=== PATIENT | male | born 1975 | race Two or more races ===

== ENCOUNTER 2020-09-18 06:05 | Emergency (ER) | payer OTHER ==
[2020-09-18] MEDS ORDERED: HYDROmorphone 1 MG/ML 1 ML SYRINGE IM STA (06:28)
[2020-09-18] MEDS ORDERED: ORPHENADRINE 30 MG/ML 2 ML VIAL IM STA (06:28)
--- NOTE | 2020-09-18 06:36 | ED ---
Back Pain HPI - General Chief Complaint: Back Pain/Injury Stated Complaint: sciatica pain Time Seen by Provider: 09/18/20 06:21 Source: patient, family, RN notes reviewed Limitations: no limitations - History of Present Illness Initial Comments: This a 45-year-old male presents emergency Department with chief complaint of low back pain. Patient states that this started a few days ago with no injury. He states that he had a lobectomy and felt instant pain. He states it's hard to walk secondary to pain he has no weakness of his lower extremities denies any bowel incontinence or bladder retention. Denies any saddle anesthesias. He has no lower extremity paresthesias. He states are mild pain is in his left thigh patient does radiate pass his left knee. He states sitting with his legs dangling improves his symptoms he states almost worse when he lays down or twists. Patient denies any dysuria no fevers or chills no abdominal complaints. - Related Data Previous Rx's Medication Instructions Recorded Cyclobenzaprine [Flexeril] 10 mg PO TID PRN #15 tab 09/18/20 HYDROcodone/APAP 7.5-325MG [Mchenry 1 tab PO Q6HR PRN 3 Days #12 tab 09/18/20 7.5-325] Ibuprofen [Motrin] 600 mg PO Q8HR PRN #20 tab 09/18/20 predniSONE 50 mg PO DAILY #5 tab 09/18/20 Allergies Allergy/AdvReac Type Severity Reaction Status Date / Time No Known Allergies Allergy Verified 09/18/20 06:14 Review of Systems ROS Statement: Those systems with pertinent positive or pertinent negative responses have been documented in the HPI. ROS Other: All systems not noted in ROS Statement are negative. Past Medical History Past Medical History: GERD/Reflux History of Any Multi-Drug Resistant Organisms: None Reported Past Surgical History: No Surgical Hx Reported Past Psychological History: No Psychological Hx Reported Smoking Status: Never smoker Past Alcohol Use History: Daily, Occasional Past Drug Use History: None Reported General Exam Limitations: no limitations General appearance: alert, in no apparent distress Head exam: Present: atraumatic, normocephalic, normal inspection Eye exam: Present: normal appearance, PERRL, EOMI. Absent: scleral icterus, conjunctival injection, periorbital swelling ENT exam: Present: normal exam, normal oropharynx, mucous membranes moist Neck exam: Present: normal inspection, full ROM. Absent: tenderness, meningismus, lymphadenopathy Respiratory exam: Present: normal lung sounds bilaterally. Absent: respiratory distress, wheezes, rales, rhonchi, stridor Cardiovascular Exam: Present: regular rate, normal rhythm, normal heart sounds. Absent: systolic murmur, diastolic murmur, rubs, gallop, clicks GI/Abdominal exam: Present: soft, normal bowel sounds. Absent: distended, tenderness, guarding, rebound, rigid Extremities exam: Present: other (Extremity pulses equal bilaterally, no calf tenderness no swelling lower extremities equal color equal warmth) Back exam: Present: full ROM, tenderness (Left SI, left lower lumbar), paraspinal tenderness. Absent: vertebral tenderness Neurological exam: Present: alert, oriented X3, CN II-XII intact, reflexes normal. Absent: motor sensory deficit Psychiatric exam: Present: normal affect, normal mood Skin exam: Present: warm, dry, intact, normal color. Absent: rash Course Vital Signs 09/18/20 06:09 Temperature 97.8 F Pulse Rate 90 Respiratory 20 Rate Blood Pressure 144/97 O2 Sat by Pulse 98 Oximetry Medical Decision Making - Medical Decision Making This a 45-year-old male present emergency from for low back pain. X-ray shows degenerative changes greatest at the SI joint patient does have some levoscoliosis and osteopenia. Patient will be discharged with prednisone, pain control muscle relaxer. Patient follow-up with on-call and discussed. Disposition Clinical Impression: Lumbar radiculopathy, acute Disposition: HOME SELF-CARE Condition: Stable Instructions (If sedation given, give patient instructions): Acute Low Back Pain (ED), Lumbar Radiculopathy (ED) Additional Instructions: Please return to the Emergency Department if symptoms worsen or any other concerns. Prescriptions: Cyclobenzaprine [Flexeril] 10 mg PO TID PRN #15 tab PRN Reason: Muscle Spasm Ibuprofen [Motrin] 600 mg PO Q8HR PRN #20 tab PRN Reason: Pain HYDROcodone/APAP 7.5-325MG [Mchenry 7.5-325] 1 tab PO Q6HR PRN 3 Days #12 tab PRN Reason: pain predniSONE 50 mg PO DAILY #5 tab Is patient prescribed a controlled substance at d/c from ED?: Yes When asked, does pt state using other controlled substances?: No If prescribed controlled substance>3 days was MAPS reviewed?: Prescribed <3 Days If opioid is for acute pain is fill amount 7 days or less?: Yes If Rx opioid, was Start Talking consent form obtained?: Yes Referrals: Maria C Reeves MD [Primary Care Provider] - 1-2 days Wolfgang Max DO [Doctor of Osteopathic Medicine] - 1-2 days Time of Disposition: 07:23
--- NOTE | 2020-09-18 07:05 | XR ---
EXAM: XR Lumbosacral Spine, 4 or 5 Views CLINICAL HISTORY: Back pain radiating to the left lower extremity. TECHNIQUE: Frontal, lateral and oblique views of the lumbar spine. COMPARISON: No previous study. FINDINGS: Vertebrae: There is very gentle levoscoliosis. Osteopenia. Pedicles are unremarkable No spondylolysis or spondylolisthesis. No acute fracture. Sacrum/coccyx: Mild to moderate osteoarthritic changes about the sacroiliac joints. No acute fracture. Disc spaces: Mild degenerative disc disease of the thoracic spine. Soft tissues: Unremarkable. IMPRESSION: 1. Mild degenerative disc disease of the lumbar spine and levoscoliosis. 2. Mild to moderate osteoarthritic changes about the sacroiliac size. 3. No spondylolysis or spondylolisthesis. 4. Osteopenia.
[2020-09-18 07:41] VITALS: BP 142/95; PULSE 86; RESP 16; TEMP 98.5
== END 2020-09-18 07:41 | disposition home or self-care (01) ==
LOC: EC 06:05
DX: M54.16 Radiculopathy, lumbar region (principal); M41.9 Scoliosis, unspecified; M85.80 Other specified disorders of bone density and structure, unspecified site; M46.1 Sacroiliitis, not elsewhere classified
CPT/HCPCS: 72110; 99283; 96372 ×2; J2360; J1170

== ENCOUNTER → 2020-09-21 | Outpatient (CLI) | payer OTHER ==
--- NOTE | 2020-09-21 12:51 | MR ---
EXAMINATION TYPE: MR lumbar spine wo/w con DATE OF EXAM: 09/21/2020 COMPARISON: Plain film 09/18/2020 HISTORY: Lower back and left leg pain, abnormal reflex TECHNIQUE: Multiplanar, multisequence images of the lumbar spine were acquired utilizing 9.5 mL intravenous Gada vist gadolinium contrast. L1-L2: Normal disc appearance without desiccation. No herniation, protrusion or disc bulging. No ca nal stenosis is present. Foramina are patent bilaterally. L2-L3: Normal disc appearance without desiccation. No herniation, protrusion or disc bulging. No ca nal stenosis is present. Foramina are patent bilaterally. L3-L4: There is a lateral disc herniation present, sagittal image #4 causing some left-sided foramina l encroachment. Some facet arthropathy with hypertrophy ligamentum flavum causes posterior lateral ma ss effect on the thecal sac. No spinal stenosis. L4-L5: Posterior disc bulge causes mild anterior mass effect on the thecal sac. There is some facet a rthropathy change. No evident foraminal encroachment or spinal stenosis. Probable hemangioma present in the posterior aspect on the right extending into the pedicle region. Suspect some lateral recess s tenosis. L5-S1: Loss of disc height signal. No significant foraminal encroachment, no spinal stenosis. Posteri or extension of endplate disc complex may contact the proximal S1 nerve roots Lumbar segments are intact. No paraspinal masses are identified. Conus medullaris has a normal appe arance. There is a transitional vertebral body present, labeled the first nonrib-bearing segmented as T12, lumbosacral junction to noted as L5-S1. Loss of disc height is present at the lumbosacral junct ion. IMPRESSION: Lateral disc herniation, correlate with plain film prior to any intervention. Degenerative disc disea se and facet arthropathy changes as described, transitional vertebral body.
== END | disposition home or self-care (01) ==
LOC: RADMRIMAIN 09:25
PROVIDERS: ATTEND Family Medicine
DX: M51.26 Other intervertebral disc displacement, lumbar region (principal); M51.36 Other intervertebral disc degeneration, lumbar region; M47.816 Spondylosis without myelopathy or radiculopathy, lumbar region
CPT/HCPCS: 72158; A9585